=== PATIENT | male | born 1995 ===

== ENCOUNTER 2024-03-23 11:57 | Emergency (ER) | payer MEDICAID, SELFPAY ==
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
[2024-03-23 12:02] VITALS: BP 118/86; PULSE 121; RESP 16; TEMP 36.4; O2SAT 94; BMI 24.4
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
[2024-03-23 14:18] VITALS: BP 118/80; PULSE 100; RESP 18; TEMP 37; O2SAT 96
[2024-03-23] MEDS: Lidocaine/Racepinep/Tetracaine 3 ML GEL.PF.APP TOPICAL (14:19)
[2024-03-23 15:07] VITALS: BP 118/80; PULSE 100; RESP 18; TEMP 37; O2SAT 96
== END 2024-03-23 15:08 | disposition home or self-care (01) ==
PROVIDERS: Emergency Provider Emergency Medicine
DX: S01.01XA Laceration without foreign body of scalp, initial encounter (principal); R51.9 Headache, unspecified; X99.0XXA Assault by sharp glass, initial encounter; Y93.89 Activity, other specified; Y92.89 Other specified places as the place of occurrence of the external cause; Y99.8 Other external cause status
CPT/HCPCS: 12001; 70450; 99284

== ENCOUNTER 2024-04-11 21:44 | Emergency (ER) | payer MEDICAID, SELFPAY ==
[2024-04-11 21:48] VITALS: BP 152/102; PULSE 94; O2SAT 99
[2024-04-11 21:54] VITALS: BP 129/71; PULSE 92; RESP 16; TEMP 36.7; O2SAT 98; BMI 24.4
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
[2024-04-11 22:27] VITALS: BP 129/71; PULSE 92; RESP 16; TEMP 36.7; O2SAT 98
== END 2024-04-11 22:30 | disposition home or self-care (01) ==
LOC: HO.ED 22:22
PROVIDERS: Emergency Provider Emergency Medicine
DX: S60.511A Abrasion of right hand, initial encounter (principal); X58.XXXA Exposure to other specified factors, initial encounter; Y93.89 Activity, other specified; Y92.89 Other specified places as the place of occurrence of the external cause; Y99.8 Other external cause status; Z48.02 Encounter for removal of sutures
CPT/HCPCS: 99283; 99284

== ENCOUNTER 2024-10-27 04:01 | Emergency (ER) | payer MEDICAID, SELFPAY ==
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
[2024-10-27 04:03] VITALS: BP 129/82; PULSE 122; RESP 18; TEMP 36.7; O2SAT 98; BMI 24.4
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
[2024-10-27 04:36] LABS: Basophils Percent Auto 0.1 % (0-2); Eosinophils Percent Auto 0.4 % (0-4); Hematocrit 43.6 % (42.0-52.0); Hemoglobin 15.8 g/dl (14.0-18.0); Imm Gran Abs Auto 0.02 X10*3/uL (0.00-0.03); Imm Gran Pct Auto 0.3 % (0.0-0.4); Lymphocytes Absolute Auto 2.3 X10*3/uL (1.2-4.9); Lymphocytes Percent Auto 32.4 % (20-40); MANUAL DIFF FLAG NO; Mean Corpuscular HGB Conc 36.2 g/dl (31.0-36.0); Mean Corpuscular Volume 82.7 fL (80.0-98.0); Mean Platelet Volume 9.5 fL (9.4-12.4); Monocytes Absolute Auto 0.5 X10*3/uL (0.1-1.2); Monocytes Percent Auto 7.3 % (2-11); Neutrophils Absolute Auto 4.3 x10*3/uL (2.0-8.3); Neutrophils Percent Auto 59.5 % (45-73); Platelet Count 288 X10*3/uL (160-400); Red Blood Count 5.27 X10*6/uL (4.60-5.80); Red Cell Distribution Width 12.7 % (11.0-16.0); White Blood Count 7.2 X10*3/uL (4.8-10.8)
[2024-10-27 04:47] LABS: Ethanol 234 mg/dL
[2024-10-27 04:48] LABS: Anion Gap 16 (12-20); Blood Urea Nitrogen 12 mg/dL (9-16); Calcium 9.2 mg/dL (8.4-10.2); Carbon Dioxide 22 mmol/L (22-29); Chloride 112 mmol/L (96-108); Creatinine Clr Calc Pharmacy 116.3; Estimated Glomerular Filt Rate > 60; Glucose Random 108 mg/dL (60-115); Potassium 3.8 mmol/L (3.3-5.1); Sodium 146 mmol/L (135-145)
[2024-10-27] MEDS: Diphth,Pertus(ACell),Tet Adult 0.5 ML SYRINGE IM (04:52)
[2024-10-27] MEDS: Lidocaine HCl 1 % MPF 5 ML VIAL 10 ML SUBCUT (04:52)
[2024-10-27] MEDS: iohexoL 350 MG/ML 100 ML INFUS..BTL 85 ML IV (05:22)
--- NOTE | 2024-10-27 06:17 | PC.NURSE ---
after MD finished with sutures, this RN attempt to clean up, pt refused states he just wants to leave. MD order to obtain visual acuity. pt also refused states he'd rather just follow up with assessment analyst. MD aware.
[2024-10-27 06:40] VITALS: BP 129/82; PULSE 85; RESP 16; TEMP 36.7; O2SAT 98
== END 2024-10-27 06:40 | disposition home or self-care (01) ==
PROVIDERS: Emergency Provider Emergency Medicine
DX: S01.111A Laceration without foreign body of right eyelid and periocular area, initial encounter (principal); S01.112A Laceration without foreign body of left eyelid and periocular area, initial encounter; S05.12XA Contusion of eyeball and orbital tissues, left eye, initial encounter; H57.13 Ocular pain, bilateral; Y04.2XXA Assault by strike against or bumped into by another person, initial encounter; Y93.9 Activity, unspecified; Y92.59 Other trade areas as the place of occurrence of the external cause; Y99.8 Other external cause status; Z51.81 Encounter for therapeutic drug level monitoring; Z23 Encounter for immunization
CPT/HCPCS: 12013; 36415; 70450; 70481; 72125; 80048; 80307; 85025; 90471; 90715; 99283; 99284; J2003; Q9967

== ENCOUNTER → 2024-10-27 04:17 | Outpatient (BNV) | payer MEDICAID, SELFPAY | PROVIDERS: Emergency Provider Emergency Medicine; Visit Provider Radiology Diagnostic Radiology | DX: S02.2XXA Fracture of nasal bones, initial encounter for closed fracture (principal); S09.90XA Unspecified injury of head, initial encounter; Y04.0XXA Assault by unarmed brawl or fight, initial encounter | CPT/HCPCS: 70450; 70481; 72125 ==

== ENCOUNTER 2025-08-02 20:57 | Emergency (ER) | payer MEDICAID, SELFPAY ==
[2025-08-02 21:03] VITALS: BP 140/72; PULSE 90; RESP 18; TEMP 36.6; O2SAT 98; BMI 26.4
[2025-08-02] MEDS: Sulfamethox/Trimeth 800/160 TABLET 1 TAB PO (23:50)
[2025-08-02] MEDS: Lidocaine 4 % Cream KIT 1 APPL TOPICAL (23:50)
[2025-08-02] MEDS: Lidocaine HCl 1%/Epi 1:100,000 10 ML VIAL INFILTRATI (23:51)
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
--- OUTSIDE RECORDS SUMMARY | 2025-08-03 00:24 | XMS_ITS | Clinical Summary ---
Author Organization [address] [facility] Address [address] [place] [address] Phone Care Team Providers Care Seat Builder Name Role Phone Jaspal Kelley NP Primary Care Provider [phone]- [phone] Allergies No known active allergies Active Problems Problem Noted Date Diagnosed Date Right hand pain 05/15/2025 Anxiety and depression 07/29/2024 Overview (07/29/2024): previously treated with seroquel Bipolar 1 disorder 07/29/2024 Herpes simplex infection of genitourinary system 10/28/2016 Encounters Date Type Department Care Team Description 05/15/2025 2:30 PM EDT Evaluation [facility] Occupational Therapy [address] [id number] Melody Carrero OT Right hand pain (Primary Dx) 05/15/2025 Plan of Care Documentation [facility] Occupational Therapy [address] [id number] from Last 3 Months Surgical History Surgery Date Site/Laterality Comments OTHER SURGICAL HISTORY PROCEDURE: DENIES PREVIOUS SURGERY Medical History Medical History Date Comments Anxiety and depression DX:Anxiet y and depression; COMMENT: previously treated with seroquel Bipolar 1 disorder (CMS/HCC V24, CMS/HCC V28) DX:Bipolar 1 disorder (HCC) Family History Medical History Relation Name Comments Cataracts Maternal Grandfather Cataracts Maternal Grandmother Blindness Neg Hx Glaucoma Neg Hx Macular degeneration Neg Hx Strabismus Neg Hx Relation Name Status Comments Father Alive Maternal Grandfather Alive cancer (unknown) Maternal Grandmother Alive Mother Alive Paternal Grandfather Alive cancer (unknown) Paternal Grandmother Alive Sister Alive anxiety and dep ression Son Alive healthy Social History Tobacco Use Types Packs/Day Years Used Date Smoking Tobacco: Former Cigarettes 0.1 Q uit: 07/17/2017 Smokeless Tobacco: Never Alcohol Use Standard Drinks/Week Comments No 0 (1 standard drink = 0.6 oz pur e alcohol) Sex and Gender Information Value Date Recorded Sex Assigned at Male 05/07/2025 10:53 AM EDT Legal Sex Male 5:42 PM EST Gender Identity Male 05/07/2025 10:53 AM EDT Sexual Orientation Straight 05/07/2025 10 :53 AM EDT Plan of Treatment Upcoming Encounters Date Type Department Care Team (Late st Contact Info) Description 08/13/2025 4:15 PM EST Evaluation [facility] Occupational Therapy [address] [id number] Melody Carrero, OT Health Maintenance Due Date Last Done Comments Hepatitis A Vaccines (1 of 2 - Risk 2-dose series) 2012 HPV Vaccines (2 - Male 3-dose series) 04/11/2014 03/14/2014 Social Influencers of Health Screening 07/29/2024 Depression Screening 08/09/2024 COVID-19 Vaccine (2 - 2024- season) 2025 11/06/2020 Influenza Vaccine (#1) 2025 Cholesterol Screening (Lipid Panel) 04/24/2030 04/24/2025, 04/24/2025 DTaP,Tdap,and Td Vaccines (10 - Td or Tdap) 04/24/2035 04/24/2025, 10/27/2024, 03/14/2014, Additional history exists RSV Immunization Adult Patients (1 - 1-dose 75+ series) 2068 HIB Vaccines Completed 07/13/1994, 0 01/1994, 1993, Additional history exists IPV Vaccines Completed 03/06/1998, 10/08, 1993, Additional history exists MMR Vaccines Completed 03/06/1998, 07/13/1994 Meningococcal ACWY Vaccine Completed 12/27/2009 Hepatitis B Vaccines Completed 09/17/2015, 07/31/2015, 03/17/1994, Additional history exists HIV Screening Completed 04/28/2018 Hepatitis C Screening Completed 04/24/2025, 018 Meningococcal B Vaccine Aged Out No l onger eligible based on patient's age to complete this topic Pneumococcal Vaccine: Pediatrics (0 to 5 Years) and At-Risk Patients (6 to 49 Years) Aged Out No longer eligible based on patient's age to complete this topic RSV Immunization Patients Under 20 months Aged Out No longer eligible based on patient's age to complete this topic Varicella Vaccines Aged Out No longer eligible based on patient's age to complete this topic Goals Goal Patient Goal Type Associated Problems Recent Progress Patient-Stated? Author <enter goal here> General Yes Melody Carrero, OT Note: OT PATIENT GOAL RESOLVE PAIN AT RIGHT DOMINANT HAND TO BE ABLE TO WORK OT STGS 8 TO 12 VISITS General No Melody Carrero, OT Note: # 1 INCORPORATE POSTURAL AWARENESS AND STRETCHING INTO DAILY REGIME TO REPORT DECREASED PAIN TO LEVEL 2 # 2 IMPROVE RIGHT SUPINATION FROM 50 TO 70 DEGREES TO RECEIEV ITEMS INTO PALM # 3 IMPROVE RIGHT WRIST EXTENSION FROM 70 TO 80 DEGREES WITH GOOD PLUS STRENGTH TO WEIGHTBEAR # 4 ACHIEVE ALL DIGIT FLEXION TO THE DPC # 5 IMPROVE RIGHT FOREIGN EXCHANGE POSITION CLERK FROM 20 TO 45 POUNDS = 75 PERCENT OF THE LEFT # 6 IMPROVE RIGHT LATERAL PINCH FROM 9 TO 15 POUNDS = 75 PERCENT OF THE LEFT Procedures Procedure Name Priority Date/Time Associated Diagnosis Comments HEPATITIS C SCREENING Routine 04/28/2018 HIV SCREENING Routine 04/28/2018 from Last 3 Months or Most Recently Relevant to Health Maintenance Results * HIV Screening (04/28/2018) HIV Screening abstracted us Historical Provider HEALTH MAINTENANCE Final Result * Hepatitis C Screening (04/28/2018) Hepatitis C Screening abstracted us Historical Provider HEALTH MAINTENANCE Final Result from Last 3 Months or Most Recently Relevant to Health Maintenance Insurance MEDICAID - [place] Care Teams Seat Builder Relationship Specialty Start Date End Date Jaspal Kelley NP [address] [place] [address] PCP - General Nurse Practitioner 04/30/25
[2025-08-03 02:39] VITALS: BP 140/72; PULSE 90; RESP 18; TEMP 36.6; O2SAT 98
== END 2025-08-03 00:40 | disposition home or self-care (01) ==
PROVIDERS: Emergency Provider Emergency Medicine; PCP Physician Assistant Medical
DX: L02.11 Cutaneous abscess of neck (principal); A49.02 Methicillin resistant Staphylococcus aureus infection, unspecified site
CPT/HCPCS: 76536; 87070; 87077; 87186; 87205; 99282; 99284; J2004